=== PATIENT | male | born 1970 | race Caucasian/White ===

== ENCOUNTER 2024-12-09 00:20 | Emergency (ER) | payer BC ==
[2024-12-09] MEDS: Fluorescein 1 MG Ophth Strip EYELF ONE (00:35)
== END 2024-12-09 01:20 | disposition home or self-care (01) ==
LOC: MW.ED 00:20
DX: T15.92XA Foreign body on external eye, part unspecified, left eye, initial encounter (principal); W45.8XXA Other foreign body or object entering through skin, initial encounter
CPT/HCPCS: 99283; A9270